=== PATIENT | male | born 1970 ===

== ENCOUNTER → 2018-07-15 | Outpatient (CLI) | payer OTHER | END | disposition home or self-care (01) | LOC: LAB EV 10:23 → LAB SHORT 10:23 | DX: J03.90 Acute tonsillitis, unspecified (principal) | CPT/HCPCS: 87070 ==

== ENCOUNTER → 2018-07-30 | Outpatient (CLI) | payer OTHER | END | disposition home or self-care (01) | LOC: LAB SHORT 08:30 → LAB EV 08:30 | DX: J02.9 Acute pharyngitis, unspecified (principal) | CPT/HCPCS: 87070 ==